=== PATIENT | male | born 1980 | race American Indian/Alaskan Native ===

== ENCOUNTER 2018-02-27 17:11 | Emergency (ER) | payer OTHER ==
[2018-02-27 17:23] VITALS: BP 121/84
[2018-02-27] MEDS ORDERED: DELTASONE PO ONE ×2 (19:19→19:21)
--- NOTE | 2018-02-27 19:19 | Emergency Department Report ---
Minor Respiratory - HPI Chief Complaint: Headache Stated Complaint: HEADACHE/CHEST PAIN/ASTHMA Time Seen by Provider: 02/27/18 19:06 Duration: 2 Days Pain Location: Other (headache that he says from allergies) Severity: severe (7/10) Minor Respiratory: Yes Rhinorrhea (congestion), Yes Able to Tolerate Fluids ( nausea), Yes Cough (dry cough), No Sore Throat, No Ear Pain, No Sick Contacts, No Hemoptysis, No Chest Pain, No Shortness of Breath, No Fever Other History: This is a 37-year-old male here report that he is having asthma flareup and because of the asthma flareup these have been a migraine headache that usually gets with asthma flare he is evidence of abdominal pain to his epigastric area from drainage from his sinuses and also nausea. He said he takes albuterol for his asthma. He said he is having mild diarrhea that he has not had any today. He states that his stool is soft. Report sinus pressure. Pain is 7 out of 10 and feels sore denies any vomiting. Denies any blood in his stool. Denies any shortness of breath or chest pain. He said he uses albuterol but it didn't help. He has a history of asthma, diabetes GERD and high cholesterol. Headache is exacerbated by coughing and it comes and goes. ED Review of Systems ROS: Stated complaint: HEADACHE/CHEST PAIN/ASTHMA Other details as noted in HPI Constitutional: denies: chills, fever Eyes: denies: eye pain, eye discharge, vision change ENT: congestion. denies: ear pain, throat pain, epistaxis Respiratory: cough, wheezing. denies: orthopnea, shortness of breath, SOB with exertion, SOB at rest, stridor Cardiovascular: denies: chest pain, palpitations, edema, syncope Gastrointestinal: nausea, diarrhea. denies: abdominal pain, vomiting, constipation, hematemesis, melena, hematochezia Musculoskeletal: denies: back pain, joint swelling, arthralgia, myalgia Skin: denies: rash, lesions, pruritus Neurological: headache. denies: weakness, numbness, paresthesias, confusion, abnormal gait, vertigo ED Past Medical Hx - Past Medical History Previous Medical History?: Yes Hx Diabetes: Yes Hx GERD: Yes Hx Asthma: Yes Additional medical history: High cholesterol - Surgical History Past Surgical History?: Yes Additional Surgical History: eye surgery - Family History Family history: diabetes, hypertension - Social History Smoking Status: Never Smoker Substance Use Type: Alcohol - Medications Home Medications: Home Medications Medication Instructions Recorded Confirmed Last Taken Type Cetirizine HCl [ZyrTEC] 10 mg PO QDAY 14 Days #14 capsule 02/27/18 Unknown Rx Fluticasone [Flonase] 1 spray NS QDAY 14 Days #1 bottle 02/27/18 Unknown Rx Prednisone 50 mg PO QAM 3 Days #3 tablet 02/27/18 Unknown Rx Promethazine [Phenergan TAB] 25 mg PO Q6HR PRN #12 tab 02/27/18 Unknown Rx Minor Respiratory Exam - Exam General: Vital signs noted. No distress. Alert and acting appropriately. This is a 37-year-old male well-nourished well-developed in no acute distress. HEENT: Yes Rhinorrhea (nasal congestion and clear drainage), No Pharyngeal Erythema, No Pharyngeal Exudates, No Moist Mucous Membranes, No Conjuctival Injection, No Frontal Tenderness, No Maxillary Tenderness Ear: Neither TM Bulge (bilateral TM congested without erythema), Neither TM Erythema, Neither EAC Pain, Neither EAC Discharge Neck: Yes Supple (full range of motion and no C-spine tenderness), No Adenopathy Lungs: Yes Good Air Exchange (CTAb), Yes Wheezes (scant wheeze into upper lung merritt), No Ronchi, No Stridor, No Cough, No Labored Respirations, No Retractions, No Use of Accessory Muscles, No Other Abnormal Lung Sounds Heart: Yes Regular (S1 and S2 regular rate and rhythm), No Murmur Abdomen: Yes Normal Bowel Sounds (in all quadrants), No Tenderness (nontender to palpation in all quadrants), No Peritoneal Signs Skin: No Rash, No Edema Neurologic: Alert and oriented 3. GCS is 15, normal gait, no motor or sensory deficit. Normal reflexes. Speech is clear and fluid, Musculoskeletal: Unremarkable. No clubbing, cyanosis or edema. +2 pulses to all extremities and no neurovascular compromise ED Course Vital Signs 02/27/18 17:19 Temperature 97.3 F L Pulse Rate 80 Respiratory 18 Rate Blood Pressure 121/84 O2 Sat by Pulse 99 Oximetry - Reevaluation(s) Reevaluation #1: 02/27/18 19:48 She received DuoNeb 1 treatment in emergency room along with prednisone 60 mg by mouth for minimal asthma flare and also received Phenergan 50 mg by mouth for nausea. He is able to tolerate oral fluids without any difficulties ED Medical Decision Making - Medical Decision Making ED course This is a 37-year-old male here report that he is having asthma flareup and he is complaining of multiple complaints secondary to his asthma flareup such as nausea from postnasal drainage, diarrhea and some epigastric pain. He is also complaining a headache but says is from his allergies and sinus problems. Patient said he is here for asthma and is using his albuterol but it's not helping. Patient was seen and examined by myself and is stable. He received DuoNeb 1 treatments along with prednisone 60 mg by mouth and his lung sounds are clear. Patient is breathing well he is in no distress. O2 sat is 99%. Phenergan 50 mg by mouth for nausea which has been relieved and patient is not experiencing any abdominal pain or headache at present. He said his breathing is better. Diagnosis and treatment plan explained to patient and he voiced understanding. A/P 1: Asthma flareup-patient given Duoneb 1 amp, Deltasone 60 mg by mouth and emergency room and will be discharged home on prednisone and to continue his albuterol 2: Upper respiratory infection with cough and congestion - patient will be discharged home on Zyrtec and Flonase and instructed on saline nasal wash. 3: Nausea without vomiting-Phenergan 50 mg by mouth 1 given and we will discharge home on Phenergan. Tolerating fluids well [id number] now episodic and he is having soft stool is able to tolerate fluids 5: Headache-resolved without medication Prescription for Flonase, Zyrtec, prednisone and Phenergan Patient educated on diagnosis, medication,and need to follow-up.Referral given for primary care/[facility] Patient discharged home in stable condition and pain is controlled. Vital signs are stable and is afebrile. Patient to follow-up with primary care physician in 2-3 days. . I also instructed him that if her symptoms worsen to return to the emergency room [facility]. He voiced understanding and discharge instruction and discharged home from ED in Critical care attestation.: If time is entered above; I have spent that time in minutes in the direct care of this critically ill patient, excluding procedure time. ED Disposition Clinical Impression: Upper respiratory infection with cough and congestion, Nausea alone Asthma attack Qualifiers: Asthma severity: mild Asthma persistence: intermittent Qualified Code(s): J45.21 - Mild intermittent asthma with (acute) exacerbation Headache Qualifiers: Headache type: unspecified Headache chronicity pattern: episodic headache Intractability: not intractable Qualified Code(s): R51 - Headache Disposition: DC-01 TO HOME OR SELFCARE Is pt being admited?: No Does the pt Need Aspirin: No Condition: Stable Instructions: Asthma (ED), Acute Headache (ED), Upper Respiratory Infection (ED ), Acute Nausea and Vomiting (ED) Additional Instructions: Please increase her fluid intake Flush nostrils with saline nasal spray F/U with primary care physician as instructed take medication as prescribed Phenergan causes drowsiness. Do not drive or operate heavy machinery while taking this medicine Prescriptions: Cetirizine HCl [ZyrTEC] 10 mg PO QDAY 14 Days #14 capsule Fluticasone [Flonase] 1 spray NS QDAY 14 Days #1 bottle Prednisone 50 mg PO QAM 3 Days #3 tablet Promethazine [Phenergan TAB] 25 mg PO Q6HR PRN #12 tab PRN Reason: Nausea Referrals: [facility] [Outside] - 2-3 Days PRIMARY CARE, [Primary Care Provider] - 2-3 Days Forms: Accompanied Note, Work/School Release Form(ED)
[2018-02-27] MEDS ORDERED: DUONEB *Not for PRN Use IH ONE (19:20)
[2018-02-27] MEDS ORDERED: PHENERGAN PO ONE (19:21)
[2018-02-27] MEDS ORDERED: DELTASONE ONE (19:22)
== END 2018-02-27 20:10 | disposition home or self-care (01) ==
LOC: ED 17:11
DX: J45.21 Mild intermittent asthma with (acute) exacerbation (principal); J06.9 Acute upper respiratory infection, unspecified; R11.0 Nausea; R19.7 Diarrhea, unspecified; E11.9 Type 2 diabetes mellitus without complications; K21.9 Gastro-esophageal reflux disease without esophagitis; E78.00 Pure hypercholesterolemia, unspecified
CPT/HCPCS: 94640; 99283; J7512; Q0169

== ENCOUNTER 2018-05-30 11:46 | Emergency (ER) | payer SELFPAY ==
[2018-05-30 12:57] VITALS: BP 116/75
[2018-05-30] MEDS ORDERED: DELTASONE PO ONE (18:10)
[2018-05-30] MEDS ORDERED: ULTRAM PO ONE (18:10)
--- NOTE | 2018-05-30 18:15 | Emergency Department Report ---
HPI - General Chief Complaint: Abdominal Pain Time Seen by Provider: 05/30/18 18:09 - HPI HPI: The patient is a 37-year-old male presents for evaluation of headache and dyspnea. The patient reports 3-4 days of a generalized aching mild in severity frontal headache, associated with loose watery stools of same duration. He states that he believes he has a stomach virus. He also reports a secondary complaint of 2-3 days of mild dyspnea, exacerbated with physical activity or exertion, improved at rest, and consistent with previous asthma exacerbations. The patient denies trauma to the head, neck pain or stiffness, paresthesias, lateralizing weakness, neuro deficits, chest pain, cough, syncope, hemoptysis, unilateral leg swelling, abdominal pain, vomiting, dysuria blood in the stools, black tarry stools, recent antibiotic use, travel outside the country, exposure to raw or uncooked seafood, reheated foods, untreated water, unpasteurized dairy , or reptilian pets including lizards, frogs, or snakes. ED Past Medical Hx - Past Medical History Hx Diabetes: Yes Hx GERD: Yes Hx Asthma: Yes Additional medical history: High cholesterol - Surgical History Additional Surgical History: eye surgery - Social History Smoking Status: Never Smoker Substance Use Type: None - Medications Home Medications: Home Medications Medication Instructions Recorded Confirmed Last Taken Type Albuterol Sulfate [Albuterol 0.63% 0.63 mg IH Q6H PRN #1 box 02/27/18 Unknown Rx NEBS] Cetirizine HCl [ZyrTEC] 10 mg PO QDAY 14 Days #14 capsule 02/27/18 Unknown Rx Fluticasone [Flonase] 1 spray NS QDAY 14 Days #1 bottle 02/27/18 Unknown Rx Promethazine [Phenergan TAB] 25 mg PO Q6HR PRN #12 tab 02/27/18 Unknown Rx predniSONE [Prednisone] 50 mg PO QAM 3 Days #3 tablet 02/27/18 Unknown Rx ALBUTEROL Inhaler (OR & NICU) 2 puff IH QID PRN #1 inhalation 05/30/18 Unknown Rx [ProAir HFA Inhaler] Acetaminophen/Codeine [Tylenol #3] 1 tab PO Q6H PRN #10 tab 05/30/18 Unknown Rx Ibuprofen [Motrin] 800 mg PO Q8HR PRN #15 tablet 05/30/18 Unknown Rx predniSONE [Deltasone] 20 mg PO QDAY #3 tab 05/30/18 Unknown Rx ED Review of Systems ROS: Stated complaint: ASTHMA/STOMACH PAINS Other details as noted in HPI Constitutional: denies: fever ENT: denies: throat or neck pain Respiratory: denies: cough reports dyspnea shortness of breath Cardiovascular: denies: chest pain Endocrine: denies unexplained weight loss or gain Gastrointestinal: reports diarrhea denies: abdominal pain, nausea Genitourinary: denies: dysuria Musculoskeletal: denies: leg swelling Skin: denies: rash Neurological: reports: headache Hematological/Lymphatic: denies: easy bleeding or easy bruising Psych: denies sadness or hopelessness Physical Exam - Physical Exam Vital Signs: Vital Signs 05/30/18 12:53 Temperature 98.9 F Pulse Rate 81 Respiratory 24 Rate Blood Pressure 116/75 O2 Sat by Pulse 99 Oximetry Physical Exam: General: well-nourished, well-developed, no acute distress Head: Normocephalic, atraumatic Eyes: normal sclera ENT: Mucous membranes are pink and moist Neck: trachea midline, neck supple, No neck stiffness, no cervical adenopathy Respiratory: Mild apical wheezing to bilateral lung merritt, no dysmetria symmetric breath sounds, no costal retractions Cardio: S1 and S2 present, no murmurs, rubs, gallops, capillary refill is brisk Abdomen: Normoactive bowel sounds, soft abdomen, no tenderness Chest WALL/Back: No tenderness to palpation of the chest wall, no CVA tenderness with percussion Musc: No pitting edema Skin: No rash Neuro: alert oriented x4, normal cognition, speech normal, PERRL, EOM intact, no facial drooping, no uvula or tongue deviation on protrusion, no deficit with rotation of neck or shoulder shrug, no obvious gross motor deficit in the upper or lower extremities with flexion or extension at the shoulder, elbow, wrist, hip, knee, or ankle bilaterally, no obvious gross sensation deficit to crude touch or 2 pt discrimination, 2+ symmetric reflexes on DTR testing, no coordination deficit with [id number] or [id number] testing, Babinski downgoing, romberg negative, patient able to to ambulate without abnormal gait Psych: Normal affect ED Course Vital Signs 05/30/18 12:53 Temperature 98.9 F Pulse Rate 81 Respiratory 24 Rate Blood Pressure 116/75 O2 Sat by Pulse 99 Oximetry ED Medical Decision Making - Medical Decision Making The patient was seen and examined by myself. The patient is placed on a front desk monitor and continuous pulse ox. On initial evaluation, the patient was found to be in no distress. As there are no neuro deficits or other findings on examination concerning for acute intracranial disease process, and as the patient states that symptoms are consistent with previous headaches, a CAT scan of the head will not be obtained at this time. The patient is given a tablet of tramadol for his pain. The patient given a tablet of prednisone for his asthma exacerbation. He declines a breathing treatment, stating that he would like to be discharged. Is given a prescription for albuterol inhaler. The patient was reevaluated and reported that their symptoms were improved. The patient is stable for discharge with outpatient follow-up. The patient is given follow-up and return instructions. The patient expressed understanding and agreed with the plan. The patient is discharged in stable condition. Critical care attestation.: If time is entered above; I have spent that time in minutes in the direct care of this critically ill patient, excluding procedure time. ED Disposition Clinical Impression: Acute non intractable tension-type headache Asthma exacerbation Qualifiers: Asthma severity: mild Asthma persistence: intermittent Qualified Code(s): J45.21 - Mild intermittent asthma with (acute) exacerbation Disposition: TO HOME OR SELFCARE Is pt being admited?: No Does the pt Need Aspirin: No Condition: Stable Instructions: Asthma (ED), Acute Headache (ED), Viral Syndrome (ED), Gastroenteritis (ED), Nutrition Tips for Relief of Diarrhea (ED) Referrals: PRIMARY CAREMD [Primary Care Provider] - 3-5 Days [facility] [Outside] - 3-5 Days Time of Disposition: 18:11
== END 2018-05-30 18:32 | disposition home or self-care (01) ==
LOC: ED 11:46
DX: G44.209 Tension-type headache, unspecified, not intractable (principal); J45.21 Mild intermittent asthma with (acute) exacerbation; E11.9 Type 2 diabetes mellitus without complications; K21.9 Gastro-esophageal reflux disease without esophagitis; E78.00 Pure hypercholesterolemia, unspecified
CPT/HCPCS: 99283; J7512